=== PATIENT | female | born 1970 | race Caucasian/White ===

== ENCOUNTER → 2019-05-23 07:38 | Outpatient (CLI) | payer SELFPAY ==
[2013-04-29 21:55] VITALS: BMI 25.6
--- NOTE | 2019-05-23 07:46 | CT_ITS ---
STUDY: CARDIAC CALCIUM SCORING - CT CHEST REASON FOR EXAM: Female, 49 years old. Screening. RADIATION DOSAGE (If Supplied By Facility): CTDIvol = ( 12.19 ) mGy, DLP = ( 219.42 ) mGycm TECHNIQUE: Axial non-enhanced images were acquired through the heart for the sole purpose of measuring coronary artery calcium. Individualized dose optimization techniques were used for this CT. COMPARISON: None. FINDINGS: This portion of the report is being generated solely for the evaluation of noncoronary artery structures which have been assessed on plain another report. The visualized lungs are well expanded and free of infiltrate or mass. There is no pleural abnormality. The heart is normal in size. Normal pericardium. Normal visualized trachea and major bronchi. Normal visualized pulmonary arteries and thoracic aorta. There is nonspecific subcentimeter mediastinal lymphadenopathy. The kaycee appear normal. Degenerative changes of the thoracic spine. Normal visualized upper abdomen. CT/Limited Chest CT w/CCTA IMPRESSION: No evidence of significant anatomic abnormality. Electronically Signed: Derick Sarabia DO at 18:17 EST Tel [phone], Service support ,
[2019-05-23 07:51] VITALS: BP 124/85; PULSE 70; RESP 16; O2SAT 97; BMI 28.9
--- NOTE | 2019-05-23 13:52 | CA.SCORE ---
Calcium Scoring Date of Study:: 05/23/19 Coronary Calcium Scoring: High-resolution Computed Tomographic imaging of the chest was performed on [05/23/2019], with particular attention paid to the coronary arteries. Images from the examination were analyzed for the presence and extent of coronary artery calcification , using coronary calcium quantification software. The patient tolerated the procedure well and there were no complications. The results of the coronary calcification analysis are provided below. - Findings Left Main (LM): 0 Left Anterior Descending (LAD): 0 Left Circumflex (LCX): 0 Right Coronary Artery (RCA): 0 Total Agatston Score: 0 Percentile Rankin% tile Calcium Scoring Interpretation: 0 No identifiable atherosclerotic plaque. Very low cardiovascular disease risk. <5% chance of presence coronary artery disease A Negative Examination 1-10 Minimal Plaque burden. Significant coronary artery disease very unlikely. 11-100 Mild plaque burden. Likely mild or minimal coronary atherosclerosis. 101-400 Moderate plaque burden Moderate non-obstructive coronary artery disease highly likely. Over 400 Extensive plaque burden. High likelihood of at least one significant coronary stenosis (>50% diameter) Calcium Score: 0 Negative Examination - A full evaluation of cardiac risk should include an assessment of all conventional risk factors and the scores and percentile rankings reported herein should be evaluated in this context.
== END ==
PROVIDERS: Family Provider Family Medicine; PCP Internal Medicine; Referring Provider Internal Medicine; Visit Provider Internal Medicine
DX: Z82.49 Family history of ischemic heart disease and other diseases of the circulatory system (principal)
CPT/HCPCS: 75571; 76380

== ENCOUNTER → 2019-05-25 07:57 | Outpatient (CLI) | payer OTHER, SELFPAY ==
[2019-05-23 07:51] VITALS: BMI 28.9
--- NOTE | 2019-05-25 08:02 | ECHOD_ITS ---
Reason For Study: PALPITATIONS, CHEST TIGHTNESS Procedure This was a 2D Doppler, Color Flow transthoracic echocardiogram. Exam performed in department. Left Ventricle Normal LV size. The estimated ejection fraction is 55 %. No evidence for diastolic dysfunction. No regional wall motion abnormalities noted. Right Ventricle Normal RV size. Normal systolic function. Atria Normal left atrium. Normal right atrium. No doppler evidence for ASD. Mitral Valve There is no mitral valve stenosis. No mitral valve insufficiency. Tricuspid Valve There is no tricuspid stenosis. Trivial tricuspid valve insufficiency. Unable to estimate RV systolic pressure due to insufficient tricuspid regurgitant envelope. Aortic Valve Trisinus/trileaflet aortic valve. There is no aortic stenosis. No aortic valve insufficiency. Pulmonic Valve There is no pulmonic valvular stenosis. No pulmonic valve insufficiency. Great Vessels Normal aortic root. Pericardium/Pleural No pericardial effusion. MMode/2D Measurements & Calculations LVIDd: 4.7 cm IVSd: 0.91 cm Ao root diam: 2.8 cm LVIDs: 3.1 cm LVPWd: 0.87 cm RVDd: 3.1 cm FS: 32.8 % LAV(MOD-bp): 45.3 ml LA A4 area: 16.6 cm2 LA dimension(2D): 3.2 cm LAV(MOD-bp) Indexed: 26.7 ml/m2 LAV(MOD-sp2): 41.5 ml LAV(MOD-sp4): 46.3 ml RA A4 area: 12.3 cm2 Time Measurements MV dec time: 0.16 sec Doppler Measurements & Calculations MV E max stanley: 99.3 cm/sec Lat Peak E' Stanley: 8.8 cm/sec Med Peak E' Stanley: 7.5 cm/sec MV A max stanley: 107.2 cm/sec E/E' lat: 11.2 E/E' med: 13.3 MV E/A: 0.93 Ao V2 max: 146.5 cm/sec LV V1 max: 110.4 cm/sec PA V2 max: 85.9 cm/sec Ao max P.6 mmHg LV V1 max P.9 mmHg PI dec slope: 268.0 cm/sec2 TR max stanley: 251.3 cm/sec TR max P.3 mmHg Interpretation Summary The estimated ejection fraction is 55 %. No evidence for diastolic dysfunction. Trivial tricuspid valve insufficiency. Ordering Physician: Zaira Omer Referring Physician: Zaira Omer Performed By: Mahi Tierney, RICHIE, RVT
--- NOTE | 2019-05-25 08:02 | CDU_ITS ---
Reason For Study: Dizziness Rt. Velocities/BP Lt. Velocities/BP Prox CCA 85.2/25.2 cm/sec. Prox CCA 101/24.3 cm/sec. Mid CCA 78.6/25.2 cm/sec. Mid CCA 121.1/44.4 cm/sec. Dist CCA 63/22.6 cm/sec. Dist CCA 99.2/37.1 cm/sec. Prox ICA 79.9/36.9 cm/sec. Prox ICA 110.1/31.6 cm/sec. Mid ICA 147.7/62.1 cm/sec. Mid ICA 101/33.4 cm/sec. Dist ICA 136.8/59.9 cm/sec. Dist ICA 115.6/38.9 cm/sec. Rt. ICA/CCA = 1.88. Lt. ICA/CCA = 1.14. Prox ECA 70.8/16 cm/sec. Prox ECA 95.5/17 cm/sec. Rt. Vert. 49.8/17.9 cm/sec. Lt. Vert. 54.2/25.6 cm/sec. Right Extracranial There is homogeneous, smooth atherosclerotic plaque noted in the right common carotid artery. There is homogeneous, smooth atherosclerotic plaque noted in the right internal carotid artery. There is intimal thickening but no significant atherosclerotic plaque noted in the right external carotid artery. Antegrade flow is noted in the right vertebral artery. Left Extracranial There is homogeneous, smooth atherosclerotic plaque noted in the left common carotid artery. There is intimal thickening but no significant atherosclerotic plaque noted in the left internal carotid artery. There is no significant atherosclerotic plaque noted in the left external carotid artery. Antegrade flow is noted in the left vertebral artery. Procedure Carotid Duplex [id number]. Exam performed in department. Interpretation Summary Mild (<50%) stenosis right extracranial internal carotid. No significant atherosclerotic plaque or stenosis noted in the left internal carotid artery. Flow within the vertebral arteries is antegrade bilaterally. Ordering Physician: Zaira Omer Referring Physician: Zaira Omer Performed By: Rosi Mora RVT
== END ==
PROVIDERS: Family Provider Family Medicine; PCP Internal Medicine; Referring Provider Internal Medicine; Visit Provider Internal Medicine
DX: R42 Dizziness and giddiness (principal); R07.89 Other chest pain; R00.2 Palpitations
CPT/HCPCS: 93225; 93226; 93306; 93880

== ENCOUNTER → 2019-06-13 10:16 | Outpatient (CLI) | payer OTHER, SELFPAY ==
[2019-05-23 07:51] VITALS: BMI 28.9
[2019-06-13 10:25] VITALS: BP 150/90; PULSE 84; RESP 16; TEMP 36.6; O2SAT 98; BMI 28.3
[2019-06-13 11:32] VITALS: BP 150/90; PULSE 84; RESP 16; TEMP 36.6; O2SAT 98
== END ==
PROVIDERS: PCP Internal Medicine; Referring Provider Internal Medicine; Visit Provider Internal Medicine
DX: D50.9 Iron deficiency anemia, unspecified (principal)
CPT/HCPCS: 96365; J1756; A4216

== ENCOUNTER → 2019-06-15 09:59 | Outpatient (CLI) | payer OTHER, SELFPAY ==
[2019-05-23 07:51] VITALS: BMI 28.9
[2019-06-13 10:25] VITALS: BMI 28.3
[2019-06-15 10:13] VITALS: BP 134/80; PULSE 87; RESP 16; TEMP 36.6; O2SAT 100; BMI 29.2
== END ==
PROVIDERS: PCP Internal Medicine; Referring Provider Internal Medicine; Visit Provider Internal Medicine
DX: E61.1 Iron deficiency (principal); D64.9 Anemia, unspecified
CPT/HCPCS: 96365; J1756; J7050; A4216

== ENCOUNTER → 2019-06-20 10:06 | Outpatient (CLI) | payer OTHER, SELFPAY ==
[2019-06-13 10:25] VITALS: BMI 28.3
[2019-06-15 10:13] VITALS: BMI 29.2
[2019-06-20 10:22] VITALS: BP 140/85; PULSE 80; RESP 16; TEMP 36.5; O2SAT 96; BMI 29.2
[2019-06-20 10:55] VITALS: BP 146/79; PULSE 77; RESP 16
== END ==
PROVIDERS: PCP Internal Medicine; Referring Provider Internal Medicine; Visit Provider Internal Medicine
DX: E61.1 Iron deficiency (principal); D64.9 Anemia, unspecified
CPT/HCPCS: 96365; J1756; J7050; A4216

== ENCOUNTER → 2019-06-22 09:59 | Outpatient (CLI) | payer OTHER, SELFPAY ==
[2019-06-13 10:25] VITALS: BMI 28.3
[2019-06-20 10:22] VITALS: BMI 29.2
[2019-06-22 10:31] VITALS: BP 124/74; PULSE 81; RESP 14; TEMP 36.6; O2SAT 100; BMI 29.2
== END ==
PROVIDERS: PCP Internal Medicine; Referring Provider Internal Medicine; Visit Provider Internal Medicine
DX: E66.1 Drug-induced obesity (principal); D64.9 Anemia, unspecified
CPT/HCPCS: 96365; J1756; J7050; A4216

== ENCOUNTER → 2019-06-27 10:04 | Outpatient (CLI) | payer OTHER, SELFPAY ==
[2019-06-13 10:25] VITALS: BMI 28.3
[2019-06-22 10:31] VITALS: BMI 29.2
[2019-06-27] MEDS: 0.9% Saline Lock 10 ML Syringe IV (10:45)
[2019-06-27 10:47] VITALS: BP 134/80; PULSE 77; RESP 16; TEMP 36.6; O2SAT 98; BMI 29.2
== END ==
PROVIDERS: PCP Internal Medicine; Referring Provider Internal Medicine; Visit Provider Internal Medicine
DX: E61.1 Iron deficiency (principal); D64.9 Anemia, unspecified
CPT/HCPCS: 96365; J1756; J7050; A4216

== ENCOUNTER → 2019-07-04 09:58 | Outpatient (CLI) | payer OTHER, SELFPAY ==
[2019-06-13 10:25] VITALS: BMI 28.3
[2019-06-27 10:47] VITALS: BMI 29.2
[2019-07-04 10:33] VITALS: BP 108/72; PULSE 86; RESP 16; TEMP 36.5; O2SAT 97; BMI 29.2
== END ==
PROVIDERS: PCP Internal Medicine; Referring Provider Internal Medicine; Visit Provider Internal Medicine
DX: E66.1 Drug-induced obesity (principal); D64.9 Anemia, unspecified
CPT/HCPCS: 96365; J1756; J7050; A4216

== ENCOUNTER → 2019-07-06 10:02 | Outpatient (CLI) | payer OTHER, SELFPAY ==
[2019-06-13 10:25] VITALS: BMI 28.3
[2019-07-04 10:33] VITALS: BMI 29.2
[2019-07-06 10:26] VITALS: BP 129/84; PULSE 82; RESP 16; TEMP 36.8; O2SAT 97; BMI 29.2
== END ==
PROVIDERS: PCP Internal Medicine; Referring Provider Internal Medicine; Visit Provider Internal Medicine
DX: E66.1 Drug-induced obesity (principal); D64.9 Anemia, unspecified
CPT/HCPCS: 96365; J1756; J7050; A4216

== ENCOUNTER → 2019-07-11 14:23 | Outpatient (CLI) | payer OTHER, SELFPAY ==
[2019-06-13 10:25] VITALS: BMI 28.3
[2019-07-06 10:26] VITALS: BMI 29.2
[2019-07-11] MEDS: 0.9% Saline Lock 10 ML Syringe IV (14:35)
[2019-07-11 14:39] VITALS: BP 115/69; PULSE 80; RESP 16; TEMP 36.6; O2SAT 97; BMI 29.2
[2019-07-11 15:16] VITALS: BP 114/76; PULSE 75; RESP 16
== END ==
PROVIDERS: PCP Internal Medicine; Referring Provider Internal Medicine; Visit Provider Internal Medicine
DX: E61.1 Iron deficiency (principal); D64.9 Anemia, unspecified
CPT/HCPCS: 96365; J1756; J7050; A4216

== ENCOUNTER → 2020-07-08 14:49 | Outpatient (CLI) | payer OTHER, SELFPAY ==
[2019-07-11 14:39] VITALS: BMI 29.2
== END ==
PROVIDERS: PCP Internal Medicine; Referring Provider Physician Assistant; Visit Provider Physician Assistant
DX: Z03.818 Encounter for observation for suspected exposure to other biological agents ruled out (principal)
CPT/HCPCS: 87635; C9803; U0002